=== PATIENT | male | born 1985 | race Caucasian/White ===

== ENCOUNTER 2024-08-13 23:25 | Emergency (ER) | payer MEDICAID ==
[~2024-08-13] VITALS: Ht 177.8 cm; Wt 118.9 kg
[2024-08-14] MEDS: propofol 10mg/ml 20ml vial IV ONE (00:01)
--- NOTE | 2024-08-14 00:12 | RADIOLOGY REPORT ---
Exam: DI ABDOMEN,SINGLE VIEW(KUB) Indication: foreign body in rectum Comparison: None Technique: 6 radiographic views of the abdomen. Findings: The visualized portions of the lung bases are clear. No radiodense foreign bodies identified. Nonobstructive bowel gas pattern noted. There is no definite evidence for pneumoperitoneum. No abnormal calcifications noted. Impression: 1. Nonobstructive bowel gas pattern noted. 2. No evidence of radiodense foreign body.
--- NOTE | 2024-08-14 01:59 | Physician Documentation ---
History of Present Illness ~ Chief Complaint: Foreign body Stated Complaint: FOREIGN BODY Time Seen by MD: 23:30 Primary Medical Doctor: NONE Source: patient, EMS, EMS notes reviewed Mode of Arrival: EMS Exam Limitations: no limitations HPI Chief Complaint: Sex toy in rectum Caveat: None Independent Historians: Paramedics History of Present Illness: Patient is a 39-year-old man brought in by paramedics from home after he inserted a dildo into his rectum. Patient is unable to remove the dildo. Patient denies any abdominal pain. Patient denies any pain. Review of systems: All systems were reviewed and are negative except for what is indicated in the history of present illness. Past Medical History: ADHD Past Surgical History: None Social History: Denies alcohol or drug use Medications: Reviewed as documented Nursing Notes Allergies: Reviewed as documented in Nursing Notes Medication Reconciliation Allergies: Coded Allergies: methylphenidate HCl (Verified Allergy, Unknown, 08/13/24) Past Medical History Past Medical History: Kidney Stones, *PSYCH* Past Surgical History: noncontributory Alcohol Use: None Drug Use: none Lives with: Family Lives In: Home Occupation: disabled Review of Systems All Other Systems at this time: Reviewed and Negative ROS Patient denies any other acute symptoms other than above. All other systems are negative Physical Exam Vital Signs: RN Vital Signs have been reviewed: Yes, Temperature: 98.3, Source: Oral, Heart Rate: 92, Respiratory Rate: 20, BP: 136/78, Pulse Oximetry: 95, Weight: 118.910 Oxygen Flow Rate: 2.0 Pulse Oximetry Reflects: adequate oxygenation Physical Exam General Appearance: No distress, morbidly obese HEENT: Normal OP, moist oral mucosa, PERRL, EOMI Neck: supple, normal ROM, trachea midline Pulmonary: No respiratory distress, CTA, BS equal Cardiac: RRR, no murmur, rub or gallop, GI: nondistended, soft, nontender, normal bowel sounds, no guarding, no rebound Rectal: Plastic sex toy can be palpated with fingers. Small amount of bloody stool. No significant amount of blood. Extremities: normal ROM, no swelling, non-tender Skin: intact, dry, warm, no rashes Neuro: AAOx3, speech is clear, no focal motor weakness Psych: normal affect, good eye contact, no apparent hallucination, normal speech Progress Results/Orders Results/Orders Orders - ALFONSO TURK MD Abdomen,Single View(Kub) (08/13/24 23:50) Monitor (08/13/24 23:41) Saline Lock (08/13/24 23:41) Completed Orders - ALFONSO TURK MD Abdomen,Single View(Kub) (08/13/24 23:50) Propofol Inj (Diprivan Inj) (08/13/24 23:50) Vital Signs 08/13/24 08/14/24 08/14/24 08/14/24 23:38 00:28 00:32 00:37 Temp 98.3 98.3 Pulse 113 103 97 97 Resp 19 20 18 25 B/P (MAP) 129/78 153/90 (111) 135/91 140/85 124/82 Pulse Ox 97 95 95 95 O2 Delivery Nasal Cannula Nasal Cannula O2 Flow Rate 0 0 08/14/24 08/14/24 08/14/24 08/14/24 00:40 00:42 00:47 00:52 Pulse 99 94 95 94 Resp 20 16 12 12 B/P (MAP) 135/91 143/111 130/79 Pulse Ox 97 95 95 95 O2 Delivery Nasal Cannula Nasal Cannula O2 Flow Rate 2.0 FiO2 28 08/14/24 08/14/24 08/14/24 08/14/24 00:57 00:58 01:15 01:30 Pulse 92 91 91 94 Resp 12 16 10 12 B/P (MAP) 124/82 124/82 (96) 137/82 (100) 136/73 (94) Pulse Ox 95 93 95 95 O2 Delivery Room Air Room Air Room Air 08/14/24 08/14/24 08/14/24 01:42 01:50 02:00 Temp 98.3 Pulse 92 93 Resp 16 20 16 B/P (MAP) 136/78 (97) 129/87 (101) Pulse Ox 95 97 O2 Delivery Room Air Medical Decision Making Findings Differential diagnosis includes but is not limited to: Rectal foreign body Procedure: Removal of rectal foreign body Under procedural sedation using propofol patient was sedated and the hot pink plastic dildo was successfully removed. There was a small amount of bloody stool. How there was no significant blood loss. No anal tears. Emergency department course/medical decision-making: Patient tolerated procedural sedation a removal of the dildo. No complications. Patient is not complaining of any pain. Patient is stable for discharge. Departure Time of Disposition: 02:00 Disposition: 01 HOME / SELF CARE / HOMELESS Impression: Primary Impression: Rectal foreign body Qualified Codes: T18.5XXA - Foreign body in anus and rectum, initial encounter Condition: Improved Discharge Instructions: Moderate Conscious Sedation, Adult, Care After, Rectal Foreign Body Removal, Care After Additional Instructions: FOLLOW UP WITH YOUR DOCTOR NEEDED. YOU MAY SEE A SMALL AMOUNT OF BLOOD FROM THE ANUS. THIS SHOULD RESOLVE. Education Educated: Patient Educated regarding: diagnosis, treatment Signature Scribe Signature: NO SCRIBE Attestation: NO SCRIBE Procedures Moderate Sedation : Date of Procedure: Aug 14, 2024 Chief Complaint: RECTAL FOREIGN BODY See Completed H&P Dated: Aug 14, 2024 Pulmonary Assessment: Unremarkable Neurological Assessment: Unremarkable Cardiovascular Assessment: Unremarkable Other Systems: Unremarkable Medications: None ASA Class: II-mild disease Mallampati Score/Visibility of: Class 3-soft palate Informed Consent WRITTEN AND VERBAL CONSENT OBTAINED Medication Used: Diprivan Staff Present: primary nurse, natural gas plant technician Monitoring: clinical research monitor, Spo2, NIPB, patient on oxygen via N/C, suction ready, crash cart at bedside, BVM ready Tolerated Procedure Well?: yes, no complications ALFONSO TURK MD Aug 14, 2024 01:59
[2024-08-14 02:02] VITALS: BP 129/87; PULSE 93; RESP 16; TEMP 98.3; O2SAT 97
== END 2024-08-14 02:09 | disposition home or self-care (01) ==
LOC: ER 23:25
DX: T18.5XXA Foreign body in anus and rectum, initial encounter (principal); Z87.442 Personal history of urinary calculi; W44.8XXA Other foreign body entering into or through a natural orifice, initial encounter; Y93.89 Activity, other specified; Y92.89 Other specified places as the place of occurrence of the external cause; Y99.8 Other external cause status
CPT/HCPCS: 74018; 99285; J7030; 94760; A4620